=== PATIENT | female | born 2000 ===

== ENCOUNTER 2020-11-02 11:07 | Emergency (ER) | payer SELFPAY ==
[~2020-11-02] VITALS: Ht 149.9 cm; Wt 74.0 kg
[2020-11-02 11:13] VITALS: BP 113/66
[2020-11-02] MEDS ORDERED: LIDOCAINE 1%, 10ML INFIL ONE (11:30)
[2020-11-02] MEDS ORDERED: LIDOCAINE-MPF 1%, 5ML ONE (11:45)
--- NOTE | 2020-11-02 11:50 | NUR ---
PT AMBULATORY TO ROOM 10 W/ C/O R BIG TOE W/ INGROWN TOENAIL NOTICED IT THIS WEEKEND. PT DENIES ANY HX. DENIES DM 1/2. PT RESTING ON GURNEY. NADN. MONITORS APPLIED.
[2020-11-02] MEDS ORDERED: METO25TA35 PO (12:12)
[2020-11-02] MEDS ORDERED: MYCO500T PO (12:12)
[2020-11-02] MEDS ORDERED: URSO300C27 PO (12:12)
[2020-11-02] MEDS ORDERED: ONDA4TAB7 PO (12:12)
[2020-11-02] MEDS ORDERED: TACR1CAP5 PO (12:12)
[2020-11-02] MEDS ORDERED: MELA3TAB31 PO (12:12)
[2020-11-02] MEDS ORDERED: ASPI-963 PO (12:12)
[2020-11-02] MEDS ORDERED: PREG50CA PO (12:12)
[2020-11-02] MEDS ORDERED: SULF1TAB23 PO (12:12)
[2020-11-02] MEDS ORDERED: FLUC100T4 PO (12:12)
[2020-11-02] MEDS ORDERED: PANT40TA6 PO (12:12)
[2020-11-02] MEDS ORDERED: POLY17PO5 PO (12:12)
[2020-11-02] MEDS ORDERED: TAMS-11 PO (12:12)
[2020-11-02] MEDS ORDERED: MAGN400T36 PO (12:12)
--- NOTE | 2020-11-02 12:27 | NUR ---
PT RESTING ON GURNEY. ALVARADO
--- NOTE | 2020-11-02 12:56 | NUR ---
REPORT GIVEN TO CHANELLE WOMACK.
--- NOTE | 2020-11-02 13:09 | NUR ---
Wound cleaned and dressed by ER MD student. Discharge instructions reviewed.
== END 2020-11-02 13:26 | disposition home or self-care (01) ==
LOC: ED 13:23
DX: L60.0 Ingrowing nail (principal)
CPT/HCPCS: 11730; 11740; 99284